=== PATIENT | male | born 1965 | race Caucasian/White ===

== ENCOUNTER 2025-04-04 06:07 | Day surgery (SDC) | payer BC, SELFPAY ==
[2025-04-04] VITALS (20 sets, daily range): BP systolic 93–180; BP diastolic 54–95; PULSE 56–75; RESP 12–16; TEMP 36.5–37.1; O2SAT 93–98
[2025-04-04] MEDS: SODIUM CHLORIDE 0.9 % (FLUSH) 10 ML SYRINGE IVF (06:30)
[2025-04-04] MEDS: LACTATED RINGERS 1000 ML 1,000 ML 100 ML IV ×2 (06:30→08:57)
[2025-04-04] MEDS: ACETAMINOPHEN 500 MG TABLET 1000 MG PO (06:45)
[2025-04-04] MEDS: OXYCODONE (CR) 10 MG TAB.ER.12H PO (06:45)
[2025-04-04] MEDS: MIDAZOLAM HCL 1 MG/ML inj IVP (07:09)
--- NOTE | 2025-04-04 07:12 | W.PM.H&PU ---
History & Physical Update History & Physical Update H&P Reviewed and patient assessed: No changes noted
[2025-04-04] MEDS: TRANEXAMIC ACID 100 MG/ML INJ 1000 MG IV (07:35)
--- NOTE | 2025-04-04 08:40 | PM.ORPRC ---
Procedure Note Date of procedure: 04/04/25 Procedure: PREOPERATIVE DIAGNOSIS: 1. Left knee osteoarthritis, primary, severe POSTOPERATIVE DIAGNOSIS: 1. Left knee osteoarthritis, primary, severe PROCEDURE: 1. Left total knee arthroplasty, Press-Fit, Rotating Platform - No tourniquet SURGEON: Dylan Pascal MD. AIRCRAFT MECHANIC ARMAMENT: Lokesh Torres PA-C - Of note, a skilled medical services assistant was critical for this case to aid in patient positioning, tissue retraction, limb manipulation/positioning, and closure. ANESTHESIA: Spinal anesthetic EBL: 50 mL IMPLANTS: DePuy J&J uncemented TKA - Attune PS pressfit femur size 6 narrow Size 5 pressfit tibia Rotating Platform 5mm RP poly spacer 35 mm Affixium patella TOURNIQUET: None COMPLICATIONS: None evident INDICATIONS: The patient is a pleasant 59-year-old male who has experienced severe left knee pain and difficulty bearing weight. Workup included x-rays which revealed severe osteoarthrosis in the knee. Given the deformity, the dysfunction, and the pain, as well as the failure of nonoperative management, recommendation was made for surgery. FINDINGS: Full-thickness chondral loss with erosion medial from condyle and medial tibial plateau. Full-thickness chondral defect patellofemoral compartment as well and to a lesser degree lateral compartment. Degenerative meniscus pathology medial greater than lateral. Moderate effusion upon entering the joint. DESCRIPTION OF PROCEDURE: Following a thorough discussion of risks, benefits, and alternatives consent was obtained and the left knee was marked. The patient was brought to the operating room and placed supine on the operating table. Induction of anesthesia was undertaken. 2 g IV Ancef and 1 g tranexamic acid was administered within 1 hr of incision preoperatively. Proper time-out was performed identifying proper patient, site, procedure. The operative extremity was prepped and draped in the appropriate sterile fashion using ChloraPrep after the patient was positioned supine with all bony prominences well padded. A longitudinal, anterior, midline skin incision was made starting approximately 3cm proximal to the superior pole of the patella and advanced distal to the tibial tubercle. A sub vastus approach was utilized. After mobilizing the patella, retropatellar fatpad was resected and the synovium in the suprapatellar pouch excised to visualize the anterior femoral cortex. Patellar prep showed initial measurement/thickness of 24 mm. It was resected back to approximately 14 mm. The patella prep was completed with drilling and a trial placed followed by a protector plate until final component implantation. Femoral preparation was performed via an intramedullary guide. Step drill allowed access into the femoral canal. The distal cutting guide was placed with 5? of valgus and 10 mm cut on the distal femur. Femur was sized using a posterior referencing guide in 3? of external rotation. This was found to have a best fit with the sizing noted above. The 4 in 1 cutting block was then placed, and the distal femur shaped accordingly. The box cut was then completed. We turned our attention to the proximal tibia. Extramedullary guide was utilized for cutting with the goal of being 90 degree cut from the mechanical axis of the tibia in the varus/valgus plane utilizing tibial crest as the primary alignment. Initially a 2 mm resection was performed from the medial tibial plateau. An additional 2 mm of tibial resection was needed to achieve proper balance in both flexion & extension. Ultimately, balancing was achieved in both flexion and extension in both varus and valgus. The knee was able to achieve full extension comfortably. It was sized to be a best fit with as noted above. At this stage, trial implants were removed, the tibia and femoral and patellar components were opened and inserted. The real poly spacer was opened and inserted. A 3 min Betadine soak performed. Finally, a final irrigation round with normal saline was performed. Closure performed with 0 PDS and #0 Stratafix for the quad tendon/retinaculum. 2-0 Vicryl/Stratafix for the subcutaneous and 4-0 Monocryl for subcuticular closure. Dressings were applied and the patient was awoken from anesthesia and transferred the PACU in stable condition. A skilled medical services assistant was critical for this case to aid in patient positioning, tissue retraction, bone exposure, limb manipulation/positioning, patient safety, and closure. PLAN: 1. Weight bear as tolerated operative extremity. 2. 23 hr perioperative antibiotics. 3. Ice. 4. PT/OT consults for ambulation assistance/mobility education. 5. Social work consult for discharge planning. 6. DVT prophylaxis with at SCDs, and aspirin twice daily.
--- NOTE | 2025-04-04 08:53 | CRLHL7_ITS ---
For Patients: As a result of the Cures Act, medical imaging exams and procedure reports are released immediately into your electronic medical record. You may view this report before your referring provider. If you have questions, please contact your health care provider. Indication: Total knee replacement Technique: Two views left knee Findings/Impression: Hardware from a left total knee arthroplasty is in satisfactory position. Bone alignment is normal. No sign of acute fracture. Postop changes are within normal limits. Dictated by Hamilton Reynolds MD @ 04/04/2025 11:14:14 AM (Electronically Signed)
--- NOTE | 2025-04-04 09:32 | P.ANES_ITS ---
Anesthesia Charges Start Date/Time Anesthesia Start Date: 04/04/25 Anesthesia Start Time: 07:21 Stop Date/Time Anesthesia Stop Date: 04/04/25 Anesthesia Stop Time: 09:32 Coding CPT Codes CPT Codes: ANESTH KNEE ARTHROPLASTY - 51526 ([id number]) P3 - PATIENT W/SEVERE SYS DISEASE, QK - MARKETING COMMUNICATIONS COORDINATOR 2-4 CNCRNT ANES PROC, QX - TRACK WATCHMAN SVC W/ MD MED DIRECTION
--- NOTE | 2025-04-04 09:32 | W.ANESCHARGE ---
Anesthesia Charges Start Date/Time Anesthesia Start Date: 04/04/25 Anesthesia Start Time: 07:21 Stop Date/Time Anesthesia Stop Date: 04/04/25 Anesthesia Stop Time: 09:32 Coding CPT Codes CPT Codes: ANESTH KNEE ARTHROPLASTY - 69459 ([id number]) P3 - PATIENT W/SEVERE SYS DISEASE, QK - AIR DEODORIZER SERVICER 2-4 CNCRNT ANES PROC, QX - TEXTILE DYER SVC W/ MD MED DIRECTION
--- NOTE | 2025-04-04 09:34 | W.PM.NB ---
Nerve Block Nerve Block Time Seen by Provider: 07:12 Date Seen: 04/04/25 Type of block requested by surgeon for post-operative analgesia: geniculars Side: left Time out performed: Yes Verification of patient name: Yes Verification of date of : Yes Site marking: site marked Name of person performing procedure: Suleman Continuous monitoring Was continuous monitoring of O2 sat, B/P, center director lead teacher, recorded every 15 minutes?: Yes Procedure Checklist: sterile prep, needles and gloves Ultrasound guided. Images saved: Yes Medications given in 5ml increments after negative aspiration: Marcaine %: 0.25 mL: 9 Needle gauge: 25 Patient tolerated procedure well: Yes Block Charges Block Charge (with Pro Fee): Genicular Nerve Block
--- NOTE | 2025-04-04 09:34 | W.PM.NB ---
Nerve Block Nerve Block Time Seen by Provider: 07:12 Date Seen: 04/04/25 Type of block requested by surgeon for post-operative analgesia: adductor canal Side: left Time out performed: Yes Verification of patient name: Yes Verification of date of : Yes Site marking: site marked Name of person performing procedure: Suleman Continuous monitoring Was continuous monitoring of O2 sat, B/P, french binding folder, recorded every 15 minutes?: Yes Procedure Checklist: sterile prep, needles and gloves Ultrasound guided. Images saved: Yes Medications given in 5ml increments after negative aspiration: Marcaine %: 0.25 mL: 15 Needle gauge: 20 Precedex (mcg): 25 Patient tolerated procedure well: Yes Block Charges Block Charge (with Pro Fee): Femoral Nerve Use of Ultrasound Machine for Block: Yes- US Guidance/pain block
--- NOTE | 2025-04-04 09:35 | P.ANES_ITS ---
Anesthesia Charges Start Date/Time Anesthesia Start Date: 04/04/25 Anesthesia Start Time: 07:21 Stop Date/Time Anesthesia Stop Date: 04/04/25 Anesthesia Stop Time: 09:32 Coding CPT Codes CPT Codes: ANESTH KNEE ARTHROPLASTY - 61765 ([id number]) QK - DATA ENTRY MACHINE OPERATOR 2-4 CNCRNT ANES PROC, QX - PLC ENGINEER SVC W/ MD MED DIRECTION, P3 - PATIENT W/SEVERE SYS DISEASE
--- NOTE | 2025-04-04 09:35 | W.ANESCHARGE ---
Anesthesia Charges Start Date/Time Anesthesia Start Date: 04/04/25 Anesthesia Start Time: 07:21 Stop Date/Time Anesthesia Stop Date: 04/04/25 Anesthesia Stop Time: 09:32 Coding CPT Codes CPT Codes: ANESTH KNEE ARTHROPLASTY - 98072 ([id number]) QK - FUR DRESSING SUPERVISOR 2-4 CNCRNT ANES PROC, QX - BEAN SPROUT LABORER SVC W/ MD MED DIRECTION, P3 - PATIENT W/SEVERE SYS DISEASE
[2025-04-04] MEDS: IBUPROFEN 200 MG TABLET 600 MG PO (11:48)
[2025-04-04] MEDS: LACTATED RINGERS 500 ML 500 ML 100 ML IV (13:30)
== END 2025-04-04 15:35 | disposition home or self-care (01) ==
PROVIDERS: PCP Student in an Organized Health Care Education/Training Program; Visit Provider Orthopaedic Surgery Sports Medicine
PROC: (CPT 27447; principal; 2025-04-04 07:15)
DX: M17.12 Unilateral primary osteoarthritis, left knee (principal); G89.18 Other acute postprocedural pain
CPT/HCPCS: 27447; 01402; 64447; 64454; 73560; 76942; 97110; 97116; 97162; A9270; C1776; J0665; J0690; J2250; J2371; J2405; J2704; J3010; J7120